=== PATIENT | male | born 1990 | race Caucasian/White ===

== ENCOUNTER 2022-11-15 05:39 | Inpatient (IN) | payer MEDICAID, SELFPAY ==
[2022-11-15] VITALS (107 sets, daily range): BP systolic 100–153; BP diastolic 49–110; PULSE 104–133; RESP 0–27; TEMP 36.6–38.3; O2SAT 95–100
--- NOTE | 2022-11-15 05:30 | DI.RAD_ITS ---
Exam(s) XR PORTABLE CHEST AP EXAM: XR PORTABLE CHEST AP CLINICAL HISTORY: left chest pain TECHNIQUE: 2D digital imaging was performed of the chest. One image was obtained. An AP view was ob tained. COMPARISON: No exams were available for comparison FINDINGS: MEDIASTINUM: Normal. HEART: Normal. PULMONARY VASCULATURE: Normal. LUNGS: Clear. PLEURAL SPACE: No pleural effusion or pneumothorax. BONE:Within normal limits for the patient's age. OTHER FINDINGS:Normal. IMPRESSION: No acute pulmonary findings. DATA REPOSITORY: RADIATION DOSE DELIVERED:
--- NOTE | 2022-11-15 05:45 | RT.EKG_ITS ---
APPROVED REPORT Exam: Resting ECG Reason for Exam: chest pain Patient Location: E HR:113 bpm ECG Measurements Heart Rate 113 AXIS DC 152 P 78 QRSd 117 QRS 118 QT 336 T 21 QTc 461 Conclusion Sinus tachycardia...rate> 99 Nonspecific intraventricular conduction delay...QRSd >115mS, not LBBB/RBBB Physician: notable t wave peaking
--- NOTE | 2022-11-15 05:52 | W.ED.GENAD ---
Discharge Plan Disposition Patient Disposition: Admit to [facility] Condition: Good Discharge Details Chief Complaint: Diabetes Clinical Impression: DKA (diabetic ketoacidosis), Acute hyperkalemia, Metabolic acidosis, Dehydration Primary Care Provider: Ani Franco ED Provider: Juan José Hurtado Home Meds and New Rx's Prescriptions: No Action insulin lispro [Humalog U-100 Insulin] 100 UNIT/ML cartridge 0 units IJ DIRECTED Medical Decision Making 32-year-old male with a past medical history of type 1 diabetes on an insulin pump presents today for concern for DKA. Patient states that he lives in [place], but is here visiting. He has insulin at home but his pump ran out of insulin yesterday. He is gone over 24 hours without any insulin. He has been vomiting as well. He admits to mild left-sided chest pain. He denies hematemesis or diarrhea. Patient states that this feels similar to previous DKA episodes. He recently had an episode of DKA few months ago at another hospital. He denies any other medical problems. He denies any other complaints at this time. He does state that he drank alcohol yesterday, but only had 1 beer. Physical exam demonstrates notably dry mucous membranes, tachycardia, mild tachypnea. Relatively nontender nondistended abdomen. No significant left-sided chest wall tenderness on palpation. Differential is highest for DKA, dehydration, but also pancreatitis and gastroenteritis as well. Will aggressively rehydrate, evaluate for electrolyte abnormality, manage DKA if clinically confirmed, closely reassess. 6:09 AM pH has returned, at 6.95. Bicarb is 6. Still waiting on the rest of labs. We have started an insulin infusion, however we will alter the [place] protocol and increase the insulin to 0.1 units/kg/h which we will start him at 7 units/h. We will continue to monitor closely. 6:45 AM There was a delay on the chemistries secondary to a laboratory issue, however we did call lab and they have informed us that the potassium just came back and it is 7. This corresponds to the peaked T waves noted on EKG. We will give calcium, albuterol, and continue to monitor closely. We are starting him on his third liter of normal saline at this time. He is still on the insulin drip. 8 AM Laboratory work-up for repeat electrolytes has returned, VBG still shows a pH at around 6.94, potassium has notably improved at 6.2, and glucose has dropped to 700 from the initial 800. We have transition the patient to lactated Ringer's at 250 cc/h right now. I discussed the case with the hospitalist , he agrees with the assessment and plan. Patient will be admitted to the ICU. I have extensively reviewed the treatment plan with the patient. I have addressed all patient concerns at this time. I have also discussed the plan with the admitting physician and they agree with the current assessment and plan and have agreed to assume responsibility for the patient. All parties demonstrate verbal understanding and agreement with our assessment and plan at this time. The documentation in this chart was dictated using [employer] dictation software. Please excuse any dictation errors. HPI General Date/Time Provider Initiated Documentation: 11/15/22 05:44. HPI Narrative: 32-year-old male with a past medical history of type 1 diabetes on an insulin pump presents today for concern for DKA. Patient states that he lives in [place], but is here visiting. He has insulin at home but his pump ran out of insulin yesterday. He is gone over 24 hours without any insulin. He has been vomiting as well. He admits to mild left-sided chest pain. He denies hematemesis or diarrhea. Patient states that this feels similar to previous DKA episodes. He recently had an episode of DKA few months ago at another hospital. He denies any other medical problems. He denies any other complaints at this time. He does state that he drank alcohol yesterday, but only had 1 beer. Related Data Home Medications Medication Instructions Recorded Confirmed insulin lispro 100 unit/mL 0 units IJ DIRECTED 11/06/15 11/06/15 subcutaneous cartridge (Humalog U-100 Insulin) Allergies Allergy/AdvReac Type Severity Reaction Status Date / Time No Known Allergies Allergy Unverified 11/15/22 05:47 General Stated Complaint: Diabetes ELISEO: 3 Review of Systems All systems reviewed & are unremarkable except as noted in HPI and below PFSH All Active Problems (Updated 11/15/22 @ 08:07 by Juan José Hurtado DO) DKA (diabetic ketoacidosis) (Acute) Acute hyperkalemia (Acute) Metabolic acidosis (Acute) Dehydration (Acute) Social History Smoking/Tobacco Use Status: Current every day Tobacco Type: cigarettes Smoking risk assessment performed?: Yes Drug use: Occasionally Exam Narrative Exam Narrative: 1.Const: Well-nourished, Well-developed, appearing stated age 2.Eyes: PERRL, no conjunctival injection, and symmetrical lids. 3.ENT: Atraumatic external nose and ears. Extremely dry MM. Neck: Symmetric, trachea midline, No thyromegaly. 4.CVS: +S1/S2, No murmurs or gallops. Peripheral pulses 2+ and equal in all extremities. Brisk capillary refill in all extremities. 5.RESP: Unlabored respiratory effort. Clear to auscultation bilaterally. No wheezes rales or rhonchi 6.GI: Soft, Nontender/Nondistended, No hepatosplenomegaly. No guarding or rebound. 7.MSK: Normocephalic/Atraumatic, Extremities w/o deformity or ttp No cyanosis or clubbing, Normal movement of all extremities 8.Skin: Warm, Dry. No rashes or lesions. 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 Sensation grossly intact, no focal neurologic deficits. 10.Psych: (AAO) x3. Appropriate mood and affect Course Vital Signs Vital signs: Vital Signs Temperature 36.6 C 11/15/22 05:39 Pulse 113 H 11/15/22 05:39 Respiratory Rate 16 11/15/22 05:39 Blood Pressure 122/52 L 11/15/22 05:39 Pulse Oximetry 99 11/15/22 05:39 Temperature 36.6 C 11/15/22 05:39 Pulse 113 H 11/15/22 05:39 Respiratory Rate 16 11/15/22 05:39 Respiratory Effort Normal 11/15/22 05:39 Blood Pressure 122/52 L 11/15/22 05:39 Pulse Oximetry 99 11/15/22 05:39 Oxygen Delivery Method Room Air 11/15/22 05:39 Oxygen Flow Rate 0 11/15/22 05:39 Pain Level 9 11/15/22 05:39 Critical Care Time Critical Care Time Critical Care Time: Yes Total Critical Care Time: 100 Attestation: Upon my evaluation, this patient had a high probability of imminent or life-threatening deterioration, which required my direct attention, intervention, and personal management. I have personally provided 100 minutes of critical care time exclusive of time spent on separately billable procedures. Time includes review of laboratory data, radiology results, discussion with consultants, and monitoring for potential decompensation. Interventions were performed as documented.
[2022-11-15] MEDS: Normal Saline 1,000 ML 1000 ML IV ×4 (05:56→07:00)
[2022-11-15] MEDS: INSULIN REGULAR IN 0.9 % NACL 100 UNIT/100 ML BAG IV ×2 (05:57→18:22)
[2022-11-15 05:59] LABS: BE (Venous) -26 mmol/L (-2-3); HCO3 (Venous) 6 mmol/L (23-28); O2 Sat (Venous) 81 %; TCO2 (Venous) 6 mmol/L (24-29); pCO2 (Venous) 27 mmHg (41-51); pO2 (Venous) 55 mmHg
[2022-11-15 06:02] LABS: pH (Venous) 6.95 (7.31-7.41)
[2022-11-15 06:03] LABS: Abs Immature Grans 0.44 10^3/uL (0.0-0.06); Absolute Basophil Count 0.11 10^3/uL (0.0-0.2); Absolute Eosinophil Count 0.09 10^3/uL (0.0-0.7); Absolute Monocyte Count 1.49 10^3/uL (0.1-0.8); Absolute Neutrophil Count 18.49 10^3/uL (1.2-6.7); Basophils % 0.5; Eosinophils % 0.4; HCT 49.5 % (40.0-50.0); HGB 15.4 g/dL (13.5-17.5); Lymphocytes % 7.2; MCH 31.8 pg (27.0-33.0); MCHC 31.1 % (32.0-36.0); MCV 102 fL (80-95); MPV 10.5 fL (8.0-11.0); Monocytes % 6.7; Neutrophils % 83.2; Platelet Count 336 10^3/uL (130-400); RBC 4.85 10^6/uL (4.36-5.78); RDW 12.8 % (11.8-14.1); RDW-SD 48.7 fL; WBC 22.22 10^3/uL (4.4-10.8)
[2022-11-15] MEDS: Ondansetron 4 MG/2 ML VIAL (06:09)
[2022-11-15 06:19] LABS: Lipase 25 U/L (16-77)
[2022-11-15 06:26] LABS: ETHANOL BLOOD < 3.0 mg/dL (<10)
[2022-11-15 06:39] LABS: ALT 32 U/L (16-63); AST 19 U/L (15-37); Albumin 4.4 g/dL (3.4-5.0); Alkaline Phosphatase 146 U/L (46-116); Anion Gap 32.9 mmol/L (3-11); BUN 59 mg/dL (7-18); Bilirubin, Total 0.6 mg/dL (0.2-1.0); CO2 7.1 mmol/L (21.0-32.0); CREATININE 2.7 mg/dL (0.70-1.30); Chloride 90 mmol/L (98-107); Estimated GFR 31.14 (mL/min/1.73m2); Magnesium 2.8 mg/dL (1.8-2.4); Sodium 130 mmol/L (136-145); Total Protein 8.3 g/dL (6.4-8.2); Troponin I < 50 ng/L (<or=60)
--- NOTE | 2022-11-15 06:45 | DI.VRAD_ITS ---
PROCEDURE INFORMATION: Exam: XR Chest Exam date and time: 11/15/2022 6:13 AM Age: 32 years old Clinical indication: Other: Left sided chest pain TECHNIQUE: Imaging protocol: Radiologic exam of the chest. Views: 1 view. COMPARISON: No relevant prior studies available. FINDINGS: Lungs: The lungs are clear and well aerated bilaterally. There is no consolidation, infiltrate, or pulmonary edema. The pulmonary vasculature is normal in caliber. Pleural spaces: Unremarkable. No pleural effusion or pneumothorax. Heart/Mediastinum: Heart size and cardiomediastinal contours are normal. Bones/joints: Unremarkable. IMPRESSION: Normal study. No active disease in the chest. Dictated and Authenticated by: Fely Dong MD. Ordering:RIVERA Can MD
[2022-11-15 06:56] LABS: Glucose 822 mg/dL (74-106)
[2022-11-15 06:59] LABS: BE (Venous) -27 mmol/L (-2-3); HCO3 (Venous) 5 mmol/L (23-28); O2 Sat (Venous) 88 %; TCO2 (Venous) 6 mmol/L (24-29); pCO2 (Venous) 25 mmHg (41-51); pO2 (Venous) 67 mmHg
[2022-11-15] MEDS: Albuterol 2.5 MG/3 ML INH SOLN VIAL 5 MG UPD (07:00)
[2022-11-15 07:01] LABS: pH (Venous) 6.94 (7.31-7.41)
[2022-11-15] MEDS: Calcium Gluconate 4.65 MEQ/10 ML VIAL 4.65 MG IVP (07:09)
[2022-11-15 07:19] LABS: Anion Gap 28.7 mmol/L (3-11); BUN 56 mg/dL (7-18); CO2 6.3 mmol/L (21.0-32.0); CREATININE 2.3 mg/dL (0.70-1.30); Calcium 8.2 mg/dL (8.5-10.1); Chloride 100 mmol/L (98-107); Estimated GFR 37.75 (mL/min/1.73m2); Sodium 135 mmol/L (136-145)
[2022-11-15] MEDS: Lactated Ringers 250 ML IV (07:24)
[2022-11-15 07:25] LABS: Glucose 710 mg/dL (74-106); Potassium 6.2 mmol/L (3.5-5.1)
[2022-11-15] MEDS: Normal Saline 50 ML (07:26)
--- NOTE | 2022-11-15 07:41 | NUR.NOTE ---
Nursing Note:Assumed care at 0700. Pt resting comfortably with stable VS. Medications infusing per MAR. Insulin drip adjusted per [place] protocol and reviewed with Dr. Hurtado. Bruno randle. Repeat VBG/BMP to be done 0830.
[2022-11-15 08:49] LABS: BE (Venous) -24 mmol/L (-2-3); HCO3 (Venous) 6 mmol/L (23-28); O2 Sat (Venous) 93 %; TCO2 (Venous) 6 mmol/L (24-29); pCO2 (Venous) 24 mmHg (41-51); pO2 (Venous) 72 mmHg
[2022-11-15 08:50] LABS: pH (Venous) 7.03 (7.31-7.41)
[2022-11-15 09:08] LABS: Anion Gap 27.8 mmol/L (3-11); BUN 52 mg/dL (7-18); CO2 6.2 mmol/L (21.0-32.0); CREATININE 2.1 mg/dL (0.70-1.30); Chloride 101 mmol/L (98-107); Potassium 5.3 mmol/L (3.5-5.1); Sodium 135 mmol/L (136-145)
[2022-11-15 09:10] LABS: Glucose 590 mg/dL (74-106)
--- NOTE | 2022-11-15 10:32 | HPE_ITS ---
Date of service: 11/15/22 Time of Service: 10:32 Assessment and Plan Assessment and plan (1) DKA (diabetic ketoacidosis): Status: Acute Assessment and plan: Mary protocol for DKA being followed. Lantus 20 units administered. Aggressive IV fluid resuscitation. Improving glucose and pH noted. No emesis since admission. PRN zofran. Monitor K closely. He has insulin available; no concerns regarding obtaining it. He has tried a CGM in the past but could not rely on it adhering well. (2) Acute hyperkalemia: Status: Acute Assessment and plan: Initialy administered calcium and given a nebulized albuterol treatment. With insulin and the above, the K improved to 5.3 Monitor while on insulin drip being aware of the likelyhood of requiring K supplementation eventually. (3) Discharge planning issues: Status: Acute Assessment and plan: When DKA resolved, home with PCP f/u. History of Present Illness History of Present Illness Chief Complaint: Emesis Narrative: This is a 32 yo male with a PMH of DM1 that uses an insulin pump. He presented to the ED endorsing that he feels like he is in DKA. He ran out of insulin for his pump the day prior to admission. He lives in [place] but was in [facility]. He has been in DKA before (appx 6 months ago) and he felt the same so he presented to the ED. No diarrhea. Mild left-sided chest pain. He endorsed drinking 1 beer the day prior to admission. In the ED he was found to be tachycardic, mildly tachypneic with dry mucous membranes. Initial glucose on blood draw was 822. pH of 6.95. Bicarb 6. Anion gap32.9. WBC count 22.22. K 7.0. Mg 2.8. He was aggressively hydrated with IV fluids and insulin drip initiated. Review of Systems All systems reviewed & are unremarkable except as noted in HPI and below PFSH All Active Problems (Updated 11/15/22 @ 10:52 by Attila Maciel MD) Discharge planning issues (Acute) DKA (diabetic ketoacidosis) (Acute) Acute hyperkalemia (Acute) Metabolic acidosis (Acute) Dehydration (Acute) Social History Smoking/Tobacco Use Status: Current every day Tobacco Type: cigarettes Smoking risk assessment performed?: Yes Drug use: Occasionally Meds Allergies and Home Medications Allergies Allergy/AdvReac Type Severity Reaction Status Date / Time No Known Allergies Allergy Unverified 11/15/22 05:47 Home Medications Medication Instructions Recorded Confirmed Type insulin lispro 100 unit/mL 0 units IJ DIRECTED 11/06/15 11/06/15 History subcutaneous cartridge (Humalog U-100 Insulin) Results Labs 11/15/22 05:50 11/15/22 08:40 Labs: Laboratory Results - last 24 hr 11/15/22 11/15/22 11/15/22 05:50 05:50 05:50 WBC 22.22 H RBC 4.85 Hgb 15.4 Hct 49.5 MCV 102 H MCH 31.8 MCHC 31.1 L RDW 12.8 Plt Count 336 MPV 10.5 Immature Gran % 2.0 Neutrophils % 83.2 Lymphocytes % 7.2 Monocytes % 6.7 Eosinophils % 0.4 Basophils % 0.5 Nucleated RBC % 0.0 Absolute Neutrophils 18.49 H Absolute Lymphocytes 1.60 Absolute Monocytes 1.49 H Absolute Eosinophils 0.09 Absolute Basophils 0.11 VBG pH VBG pCO2 VBG pO2 VBG HCO3 VBG Total CO2 VBG O2 Saturation VBG Base Excess Sodium 130 L Potassium 7.0 H* Chloride 90 L Carbon Dioxide 7.1 L Anion Gap 32.9 H BUN 59 H Creatinine 2.7 H Est GFR (CKD-EPI 2020) 31.14 Glucose 822 H* Calcium 10.0 Magnesium 2.8 H Total Bilirubin 0.6 AST 19 ALT 32 Alkaline Phosphatase 146 H Troponin I < 50 Total Protein 8.3 H Albumin 4.4 Lipase 25 Ethyl Alcohol 11/15/22 11/15/22 11/15/22 05:50 05:50 06:53 WBC RBC Hgb Hct MCV MCH MCHC RDW Plt Count MPV Immature Gran % Neutrophils % Lymphocytes % Monocytes % Eosinophils % Basophils % Nucleated RBC % Absolute Neutrophils Absolute Lymphocytes Absolute Monocytes Absolute Eosinophils Absolute Basophils VBG pH 6.95 L* VBG pCO2 27 L VBG pO2 55 VBG HCO3 6 L VBG Total CO2 6 L VBG O2 Saturation 81 VBG Base Excess -26 L Sodium 135 L Potassium 6.2 H* Chloride 100 Carbon Dioxide 6.3 L Anion Gap 28.7 H BUN 56 H Creatinine 2.3 H Est GFR (CKD-EPI 2020) 37.75 Glucose 710 H* Calcium 8.2 L Magnesium Total Bilirubin AST ALT Alkaline Phosphatase Troponin I Total Protein Albumin Lipase Ethyl Alcohol < 3.0 11/15/22 11/15/22 11/15/22 06:53 08:40 08:40 WBC RBC Hgb Hct MCV MCH MCHC RDW Plt Count MPV Immature Gran % Neutrophils % Lymphocytes % Monocytes % Eosinophils % Basophils % Nucleated RBC % Absolute Neutrophils Absolute Lymphocytes Absolute Monocytes Absolute Eosinophils Absolute Basophils VBG pH 6.94 L* 7.03 L* VBG pCO2 25 L 24 L VBG pO2 67 72 VBG HCO3 5 L 6 L VBG Total CO2 6 L 6 L VBG O2 Saturation 88 93 VBG Base Excess -27 L -24 L Sodium 135 L Potassium 5.3 H Chloride 101 Carbon Dioxide 6.2 L Anion Gap 27.8 H BUN 52 H Creatinine 2.1 H Est GFR (CKD-EPI 2020) 42.10 Glucose 590 H* Calcium 9.0 Magnesium Total Bilirubin AST ALT Alkaline Phosphatase Troponin I Total Protein Albumin Lipase Ethyl Alcohol Last Vital Signs Temp 37.1 C 11/15/22 09:41 Pulse 111 H 11/15/22 09:41 Resp 15 11/15/22 09:41 BP 136/66 11/15/22 09:41 Pulse Ox 100 11/15/22 09:41 PAWSS Have you Been Recently Intoxicated or Drunk Within the Last 30 days?: No Have you Ever Experienced Previous Episodes of Alcohol Withdrawal?: No Have you ever Experienced Withdrawal Seizures?: No Have you ever Experienced Delirium Tremens(DT)s?: No Have you ever undergone Alcohol Rehabilitation Treatment (i.e, inpt ot outpatient treatment programs)?: No Have you ever Experienced Blackouts?: No Have you ever Combined Alcohol with other Downers within the last 90 days?: No Have you ever Combined Alcohol with any other Substance of Abuse during the last 90 days?: No Positive Blood Alcohol level on Presentation? [PCS.BAL]: No Evidence of Increased Autonomic Activity (i.e. HR>120, tremor, sweating, agitation, nausea)?: No Result: 0 Time Spent Time spent with Patient: 40-54 minutes Time was spent: preparing to see the patient(eg.review tests), obtaining and/or reviewing separately [facility], ordering medications,tests, procedures, indepentently interpreting results and counseling the patient
[2022-11-15] MEDS: Normal Saline 1,000 ML 200 ML IV ×2 (11:15→16:24)
[2022-11-15] MEDS: Enoxaparin 40 MG/0.4 ML SYR SC (12:17)
[2022-11-15] MEDS: Mylanta Suspension 30 ML CUP PO (12:19)
[2022-11-15 14:15] LABS: Anion Gap 18.2 mmol/L (3-11); BUN 39 mg/dL (7-18); CO2 13.8 mmol/L (21.0-32.0); CREATININE 1.7 mg/dL (0.70-1.30); Calcium 8.9 mg/dL (8.5-10.1); Chloride 105 mmol/L (98-107); Estimated GFR 54.25 (mL/min/1.73m2); Glucose 372 mg/dL (74-106); Sodium 137 mmol/L (136-145)
--- NOTE | 2022-11-15 14:41 | INITIAL_ITS ---
Date of service: 11/15/22 Time of Service: 14:41 Care Management Initial Assmt Initial Assessment REASON FOR HOSPITALIZATION:: DKA PREVIOUS FUNCTIONAL STATUS/SOCIAL/FAMILY SUPPORTS:: Gumaro lives alone in [place]. He has a sister in [place] and reports his father is retired and traveling. Gumaro works for [employer] and is independent with his ADLs at baseline. CURRENT FUNCTIONAL STATUS:: Miguel Ángel is lying down when CM meets with him. He answers questions asked of him but mumbles and is difficult to understand. He reports he has been in [facility] for two days visiting a friend and his insulin pump ran out, so his friend drove him to the hospital. ADVANCE DIRECTIVES:: None on file. Has patient been provided with info about the portal/API?: No Did the patient sign up for the portal?: No CODE STATUS:: Full Code INSURANCE COVERAGE / FINANCIAL ISSUES:: Patient says he has Medicaid. CURRENT HOME/COMMUNITY SERVICES/EQUIPMENT:: None. PRIMARY CARE PHYSICIAN:: Unknown - patient [facility] but does not remember the PCP's name. POTENTIAL DISCHARGE NEEDS:: Follow up appointment with PCP and evaluation for further needs. PATIENT/FAMILY EDUCATION NEEDS:: Review of discharge instructions including medications, limitations and follow up plan of care; discuss Ask Me Three and self management. ANTICIPATED BARRIERS TO DISCHARGE:: None identified at this time. TRANSPORTATION:: Via private vehicle with friend. PLAN:: Gumaro will likely be discharged home with no services when medically cleared by provider. He will follow up with his PCP and plan of care as directed. He will be transported home by his friend via private vehicle when ready. CM will continue to follow. PFSH All Active Problems (Updated 11/15/22 @ 10:52 by Attila Maciel MD) Discharge planning issues (Acute) DKA (diabetic ketoacidosis) (Acute) Acute hyperkalemia (Acute) Metabolic acidosis (Acute) Dehydration (Acute) Social History Smoking/Tobacco Use Status: Current every day Tobacco Type: cigarettes Smoking risk assessment performed?: Yes Drug use: Occasionally
[2022-11-15 18:14] LABS: BE (Venous) -5 mmol/L (-2-3); HCO3 (Venous) 21 mmol/L (23-28); O2 Sat (Venous) 83 %; TCO2 (Venous) 19 mmol/L (24-29); pCO2 (Venous) 37 mmHg (41-51); pH (Venous) 7.35 (7.31-7.41); pO2 (Venous) 41 mmHg
[2022-11-15] MEDS: Acetaminophen 325 MG TAB PO (18:21)
[2022-11-15] MEDS: Normal Saline Flush 10 ML SYR IVP (18:21)
[2022-11-15] MEDS: Nicotine 14 MG/24 HR PATCH TD (18:23)
[2022-11-15 18:25] LABS: Anion Gap 8.9 mmol/L (3-11); BUN 31 mg/dL (7-18); CO2 22.1 mmol/L (21.0-32.0); CREATININE 1.4 mg/dL (0.70-1.30); Calcium 8.6 mg/dL (8.5-10.1); Chloride 106 mmol/L (98-107); Estimated GFR 68.49 (mL/min/1.73m2); Glucose 239 mg/dL (74-106); Potassium 4.1 mmol/L (3.5-5.1); Sodium 137 mmol/L (136-145)
[2022-11-15] MEDS: POTASSIUM CHLORIDE/D5-0.45NACL 1,000 ML 150 MEQ IV (19:01)
[2022-11-15 19:16] LABS: *AMPHETAMINES SCREEN URINE Negative (Negative); *BARBITURATES SCREEN URINE Negative (Negative); *BENZODIAZEPINES SCREEN URINE Negative (Negative); Cannabinoids THC Negative (Negative); Cocaine Screen,Urine Positive (Negative); METHADONE URINE SCREEN Negative (Negative)
[2022-11-15 19:19] LABS: Tricyclic Antidepressants Negative (Negative)
[2022-11-15 20:38] LABS: OPIATES URINE SCREEN Negative (Negative)
[2022-11-15 22:15] LABS: BUN 26 mg/dL (7-18); CREATININE 1.3 mg/dL (0.70-1.30); Calcium 8.2 mg/dL (8.5-10.1); Chloride 105 mmol/L (98-107); Estimated GFR 74.85 (mL/min/1.73m2); Glucose 299 mg/dL (74-106); Potassium 3.7 mmol/L (3.5-5.1); Sodium 136 mmol/L (136-145)
[2022-11-15] MEDS: Insulin Glargine 300 UNITS/3 ML PEN 20 UNITS SC (22:30)
[2022-11-16] VITALS (41 sets, daily range): BP systolic 128–152; BP diastolic 66–90; PULSE 80–107; RESP 13–23; TEMP 37.4–38.4; O2SAT 96–97
--- NOTE | 2022-11-16 | DI.CT_ITS ---
Exam(s) CT SINUS WO EXAM: CT SINUS WO CLINICAL HISTORY: headache, fever, facial pain. TECHNIQUE: Imaging Protocol: Axial computed tomography images with coronal and sagittal reformatted images were created and reviewed. No IV Contrast COMPARISON: No exams were available for comparison FINDINGS: MAXILLARY SINUSES: There is very mild circumferential mucosal thickening in left maxillary sinus, not associated with a fluid level. No periosteal thickening nor bone dehiscence. The opposite right maxillary sinus is cl ear. OSTIOMEATAL UNITS: Mild mucosal thickening at the ostium of the left ostiomeatal unit. Right ostiome atal unit is clear although with some mild narrowing at the level of the hiatus semilunaris. ETHMOIDAL AIR CELLS: Well aerated. No mucosal thickening nor fluid levels. SPHENOID SINUSES: Well aerated. No mucosal thickening nor fluid levels. FRONTAL SINUSES: Well aerated. No mucosal thickening nor fluid levels. NASAL SEPTUM AND TURBINATES:Nasal septum is mildly deviated towards the right side and there is lengt h the contact between the mucosa of the right inferior turbinate and right side of the nasal septum, this causing some nasal passage obstruction at this level. There is no evidence of cami bullosa. No evidence of prominent nasal septal spur. IMPRESSION: 1. Mild mucosal thickening left maxillary sinus, not associated with a fluid level. Right maxillary sinus is clear. Mild bilateral ostiomeatal unit findings as above. 2. Right-sided nasal passage findings as described above. RADIATION DOSE DELIVERED: 118.77mGy.cm Total DLP DATA REPOSITORY: All CT scans at this facility are submitted to the National Radiology Data Registry (NRDR) Dose Index Registry (DIR) with the [employer] (A[employer]). RADIATION OPTIMIZATION: All CT scans at this facility use at least one of these dose optimization te chniques: automated exposure control; mA and/or kV adjustment per patient size (includes targeted exa ms where dose is matched to clinical indication); or iterative reconstruction.
--- NOTE | 2022-11-16 | DI.CT_ITS ---
Exam(s) CT HEAD W EXAM: CT HEAD W CLINICAL HISTORY: headache, fever. TECHNIQUE: Imaging Protocol: Both noninfused and contrast infused CT scans of the brain were perform ed. IV Contrast Dose =75 cc Axial computed tomography images with coronal and sagittal reformatted images were created and review ed COMPARISON: CT CT SINUS WO from 11/16/2022 FINDINGS: There are no skull fractures nor fluid in the visualized paranasal sinuses. There is no evidence of intracranial hemorrhage, mass effect, or shift of midline structures. There are no extra-axial fluid collections. The ventricles are not enlarged or shifted and there is no blo od within the ventricular system nor within the basal cisterns.No significant enlargement pituitary g land. There are no ring enhancing lesions in the brain and there is no abnormal meningeal enhancement, foca l or diffuse. No obvious venous sinus thrombosis evident. No obvious aneurysms. IMPRESSION: No significant acute intracranial findings. No significant enhancing intracranial findings. RADIATION DOSE DELIVERED: 1,421.58mGy.cm Total DLP DATA REPOSITORY: All CT scans at this facility are submitted to the National Radiology Data Registry (NRDR) Dose Index Registry (DIR) with the [employer] (ACR). RADIATION OPTIMIZATION: All CT scans at this facility use at least one of these dose optimization te chniques: automated exposure control; mA and/or kV adjustment per patient size (includes targeted exa ms where dose is matched to clinical indication); or iterative reconstruction.
[2022-11-16] MEDS: POTASSIUM CHLORIDE/D5-0.45NACL 1,000 ML 150 MEQ IV ×2 (01:20→08:14)
[2022-11-16] MEDS: Normal Saline Flush 10 ML SYR IVP ×3 (02:38→22:18)
[2022-11-16 02:58] LABS: Anion Gap 7.3 mmol/L (3-11); BUN 19 mg/dL (7-18); CO2 24.7 mmol/L (21.0-32.0); Calcium 8.3 mg/dL (8.5-10.1); Chloride 106 mmol/L (98-107); Estimated GFR 102.55 (mL/min/1.73m2); Glucose 132 mg/dL (74-106); Potassium 3.5 mmol/L (3.5-5.1); Sodium 138 mmol/L (136-145)
[2022-11-16] MEDS: Acetaminophen 325 MG TAB PO ×2 (05:52→19:49)
--- NOTE | 2022-11-16 06:15 | W.EVENT ---
Date of service: 11/16/22 Time of Service: 06:15 Event Note: Called for fever. Chart reviewed, here with DKA, now resolved. Does report one day of sore throat. On exam temp 38.4. Small left anterior cervical node. Throat very slight pharyngeal erythema, no exudate. Lab (admission) white count 22, CXR negative, U/A negative A/P: Fever, possible viral pharyngitis. Will check Strep swab and obtain blood cultures. Time Spent with Patient Time spent in critical care(minutes): 10 Time Spent Included: Chart review and Time at immediate bedside
[2022-11-16 06:24] LABS: Abs Immature Grans 0.08 10^3/uL (0.0-0.06); Absolute Basophil Count 0.03 10^3/uL (0.0-0.2); Absolute Eosinophil Count 0.02 10^3/uL (0.0-0.7); Basophils % 0.2; Eosinophils % 0.1; HCT 36.6 % (40.0-50.0); Immature Grans % 0.5; Lymphocytes % 15.1; MCH 31.9 pg (27.0-33.0); MCHC 35.5 % (32.0-36.0); MCV 90 fL (80-95); MPV 10.2 fL (8.0-11.0); Monocytes % 9.8; Neutrophils % 74.3; Platelet Count 255 10^3/uL (130-400); RBC 4.07 10^6/uL (4.36-5.78); RDW 12.4 % (11.8-14.1); RDW-SD 41.7 fL; WBC 17.37 10^3/uL (4.4-10.8)
[2022-11-16 06:32] LABS: Absolute Lymphocyte Count 2.62 10^3/uL (1.2-3.4); Absolute Neutrophil Count 12.91 10^3/uL (1.2-6.7)
[2022-11-16 06:48] LABS: Anion Gap 8.7 mmol/L (3-11); BUN 16 mg/dL (7-18); CO2 24.3 mmol/L (21.0-32.0); Calcium 8.6 mg/dL (8.5-10.1); Chloride 105 mmol/L (98-107); Estimated GFR 102.55 (mL/min/1.73m2); Glucose 96 mg/dL (74-106); Potassium 3.4 mmol/L (3.5-5.1); Sodium 138 mmol/L (136-145)
[2022-11-16 07:26] LABS: Diff Comment Diff Reviewed; RBC Morphology Normal
--- NOTE | 2022-11-16 09:34 | W.PM.PROGNOT ---
Date of Service Date of service: 11/16/22 Time of Service: 09:34 Assessment and Plan Assessment and plan (1) DKA (diabetic ketoacidosis): Status: Acute Assessment and plan: AG had resolved, HCO3 now normal. K is a little low but he is getting some iv supplementation, I will give him additional po KCl. continue to monitor his BMP while we switch him to basal/bolus insulin including SSI at insulin resistant and CHO coverage Critical care time spent interviewing and examining the patient, reviewing studies, discussing case with patient's nurse and consulting physicians was 30 minutes (2) Dehydration: Status: Acute Assessment and plan: continue iv fluids for now until certain that he is tolerating his diet (3) Metabolic acidosis: Status: Acute Assessment and plan: resolved but monitor BMP as we switch to basal/bolus coverage (4) Acute febrile illness: Status: Acute Assessment and plan: unclear source but with headache, facial pressure and photophobia, will CT head and sinuses and consider LP. Blood cultures and throat cultures were obtained earlier this morning. We will check a prolactin and blood lactate levels. Subjective Subjective Interval history since last seen: Patient was admitted yesterday in acute DKA secondary to lack of insulin. He normally wears an insulin pump but left his insulin at home in [place] but was here in [place] partying with friends. We presented the hospital last night he had a leukocytosis 22,000 which is down to 17,000 however he is afebrile overnight and temperature 38.5 max now down to 38.1. Denies any cough sputum production dysuria. Did present with nausea and vomiting. Initial leukocytosis was attributed to his DKA however in light of his fever this is raise some concern of possible concomitant infection contributing to his DKA. 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 He does have a number of scabs over his arms and legs but no open sores or ulcers. Does have a headache and has photophobia. This does raise some concern for possible meningitis but he denies any neck pain. He does have a sore throat. Blood cultures and strep swab of his throat was obtained last night and are pending at this time. He denies being around any other ill contacts. Overnight patient's DKA has resolved. CO2 is up to 24.3 anion gap is down to 8.7. Patient is tolerating clear liquid diet we will advance his diet today and switch him over to basal bolus insulin since he does not have his insulin pump here. Exam Narrative Exam Narrative: Patient is to be ill, toxic appearing he is awake but is acting rather lethargic. He seems to be oriented to person place and circumstance. HEENT has some mild periorbital edema he has full extraocular motion intact no scleral icterus. Oropharynx noninjected no exudate. I could not elicit tenderness over his maxillary sinuses Neck is supple no adenopathy no cervical tenderness negative Brudzinski and Kernig's maneuver. Lungs are clear to auscultation Heart is regular rate and rhythm Abdomen soft nontender nondistended normal bowel sounds Extremities he has number scabs over his arms and legs but there is no open sores. Examination of his feet and toes shows no ulcerations of his toes or his feet. He has normal pedal pulses sensation is intact to light touch over both feet. Objective Last Vital Signs Temp 38.1 C H 11/16/22 08:25 Pulse 91 H 11/16/22 08:00 Resp 15 11/16/22 08:00 BP 146/90 H 11/16/22 08:00 Pulse Ox 97 11/16/22 07:15 Laboratory Results - last 24 hr 11/15/22 11/15/22 11/15/22 13:50 18:09 18:09 WBC RBC Hgb Hct MCV MCH MCHC RDW Plt Count MPV Immature Gran % Neutrophils % Lymphocytes % Monocytes % Eosinophils % Basophils % Nucleated RBC % Absolute Neutrophils Absolute Lymphocytes Absolute Monocytes Absolute Eosinophils Absolute Basophils RBC Morphology VBG pH 7.35 VBG pCO2 37 L VBG pO2 41 VBG HCO3 21 L VBG Total CO2 19 L VBG O2 Saturation 83 VBG Base Excess -5 L Sodium 137 137 Potassium 5.0 4.1 Chloride 105 106 Carbon Dioxide 13.8 L 22.1 Anion Gap 18.2 H 8.9 BUN 39 H 31 H Creatinine 1.7 H 1.4 H Est GFR (CKD-EPI 2020) 54.25 68.49 Glucose 372 H 239 H Calcium 8.9 8.6 Magnesium Urine Opiates Screen Urine Methadone Screen Ur Barbiturates Screen Ur Tricyclics Screen Ur Amphetamines Screen U Benzodiazepines Scrn Urine Cocaine Screen Ur THC Screen 11/15/22 11/15/22 11/16/22 18:35 21:59 02:40 WBC RBC Hgb Hct MCV MCH MCHC RDW Plt Count MPV Immature Gran % Neutrophils % Lymphocytes % Monocytes % Eosinophils % Basophils % Nucleated RBC % Absolute Neutrophils Absolute Lymphocytes Absolute Monocytes Absolute Eosinophils Absolute Basophils RBC Morphology VBG pH VBG pCO2 VBG pO2 VBG HCO3 VBG Total CO2 VBG O2 Saturation VBG Base Excess Sodium 136 138 Potassium 3.7 3.5 Chloride 105 106 Carbon Dioxide 22.0 24.7 Anion Gap 9.0 7.3 BUN 26 H 19 H Creatinine 1.3 1.0 Est GFR (CKD-EPI 2020) 74.85 102.55 Glucose 299 H 132 H Calcium 8.2 L 8.3 L Magnesium Urine Opiates Screen Negative Urine Methadone Screen Negative Ur Barbiturates Screen Negative Ur Tricyclics Screen Negative Ur Amphetamines Screen Negative U Benzodiazepines Scrn Negative Urine Cocaine Screen Positive A Ur THC Screen Negative 11/16/22 11/16/22 11/16/22 05:35 05:35 05:35 WBC 17.37 H RBC 4.07 L Hgb 13.0 L D Hct 36.6 L MCV 90 D MCH 31.9 MCHC 35.5 D RDW 12.4 Plt Count 255 MPV 10.2 Immature Gran % 0.5 Neutrophils % 74.3 Lymphocytes % 15.1 Monocytes % 9.8 Eosinophils % 0.1 Basophils % 0.2 Nucleated RBC % 0.0 Absolute Neutrophils 12.91 H Absolute Lymphocytes 2.62 Absolute Monocytes 1.70 H Absolute Eosinophils 0.02 Absolute Basophils 0.03 RBC Morphology Normal VBG pH VBG pCO2 VBG pO2 VBG HCO3 VBG Total CO2 VBG O2 Saturation VBG Base Excess Sodium 138 Potassium 3.4 L Chloride 105 Carbon Dioxide 24.3 Anion Gap 8.7 BUN 16 Creatinine 1.0 Est GFR (CKD-EPI 2020) 102.55 Glucose 96 Calcium 8.6 Magnesium 2.0 Urine Opiates Screen Urine Methadone Screen Ur Barbiturates Screen Ur Tricyclics Screen Ur Amphetamines Screen U Benzodiazepines Scrn Urine Cocaine Screen Ur THC Screen PAWSS Have you Been Recently Intoxicated or Drunk Within the Last 30 days?: No Have you Ever Experienced Previous Episodes of Alcohol Withdrawal?: No Have you ever Experienced Withdrawal Seizures?: No Have you ever Experienced Delirium Tremens(DT)s?: No Have you ever undergone Alcohol Rehabilitation Treatment (i.e, inpt ot outpatient treatment programs)?: No Have you ever Experienced Blackouts?: No Have you ever Combined Alcohol with other Downers within the last 90 days?: No Have you ever Combined Alcohol with any other Substance of Abuse during the last 90 days?: No Positive Blood Alcohol level on Presentation? [PCS.BAL]: No Evidence of Increased Autonomic Activity (i.e. HR>120, tremor, sweating, agitation, nausea)?: No Result: 0 Time Spent with Patient Time Spent with Patient: 25-34 minutes Time was spent: preparing to see the patient(eg.review tests), obtaining and/or reviewing separately otained hiistory, ordering medications,tests, procedures, referring, communicating with other health healthcare science specialist, indepentently interpreting results, counseling the patient and care coordination
[2022-11-16] MEDS: Insulin Glargine 300 UNITS/3 ML PEN 20 UNITS SC ×2 (10:07→22:17)
[2022-11-16 10:08] LABS: Lactate 0.9 mmol/L (0.6-1.4)
[2022-11-16 10:22] LABS: C-Reactive Protein 0.75 mg/dL (0.0-0.3)
[2022-11-16 10:23] LABS: Anion Gap 6.3 mmol/L (3-11); BUN 12 mg/dL (7-18); CO2 25.7 mmol/L (21.0-32.0); Calcium 8.6 mg/dL (8.5-10.1); Chloride 105 mmol/L (98-107); Estimated GFR 102.55 (mL/min/1.73m2); Glucose 166 mg/dL (74-106); Potassium 3.4 mmol/L (3.5-5.1); Sodium 137 mmol/L (136-145)
[2022-11-16] MEDS: Insulin Aspart 300 UNITS/3 ML PEN SC ×3 (10:39→22:16)
[2022-11-16 10:40] LABS: Procalcitonin 4.5 ng/mL
[2022-11-16 11:01] LABS: Bilirubin Negative (Negative); Blood Negative (Negative); Clarity Clear (Clear); Glucose 100 mg/dL (Negative); Ketones 15 mg/dL (Negative); Leukocyte Esterase Negative (Negative); Nitrite Negative (Negative); Specific Gravity 1.015 (1.005-1.025); Urobilinogen 0.2 mg/dL (Up to 0.2); pH 5.5 (5-8)
--- NOTE | 2022-11-16 11:02 | PGE_ITS ---
Date of Service Date of service: 11/16/22 Time of Service: 11:02 Subjective Subjective Interval history since last seen: Patient still requiring NE. Nursing tried to wean off but she required iv and po lopressor for her afib (rate went up to 140's). HR now back down 80's to 90's after repeat lopressor 5 mg IVP and oral lopressor 25 mg. She has gram negative coccobacilli in her blood stream, probably H. influenza. She is on both dox ycycline 100 mg IV q12h along w/ Rocephin 2 gm q24. She has pneumonia and is currently on 1 lpm. She has been using her IS and her acapella, but has not been able to produce any sputum for cultures. Objective Last Vital Signs Temp 38.1 C H 11/16/22 08:25 Pulse 91 H 11/16/22 08:00 Resp 15 11/16/22 08:00 BP 146/90 H 11/16/22 08:00 Pulse Ox 97 11/16/22 07:15 Laboratory Results - last 24 hr 11/15/22 11/15/22 11/15/22 13:50 18:09 18:09 WBC RBC Hgb Hct MCV MCH MCHC RDW Plt Count MPV Immature Gran % Neutrophils % Lymphocytes % Monocytes % Eosinophils % Basophils % Nucleated RBC % Absolute Neutrophils Absolute Lymphocytes Absolute Monocytes Absolute Eosinophils Absolute Basophils RBC Morphology VBG pH 7.35 VBG pCO2 37 L VBG pO2 41 VBG HCO3 21 L VBG Total CO2 19 L VBG O2 Saturation 83 VBG Base Excess -5 L VBG Lactate Sodium 137 137 Potassium 5.0 4.1 Chloride 105 106 Carbon Dioxide 13.8 L 22.1 Anion Gap 18.2 H 8.9 BUN 39 H 31 H Creatinine 1.7 H 1.4 H Est GFR (CKD-EPI 2020) 54.25 68.49 Glucose 372 H 239 H Calcium 8.9 8.6 Magnesium C-Reactive Protein Procalcitonin Urine Opiates Screen Urine Methadone Screen Ur Barbiturates Screen Ur Tricyclics Screen Ur Amphetamines Screen U Benzodiazepines Scrn Urine Cocaine Screen Ur THC Screen 11/15/22 11/15/22 11/16/22 18:35 21:59 02:40 WBC RBC Hgb Hct MCV MCH MCHC RDW Plt Count MPV Immature Gran % Neutrophils % Lymphocytes % Monocytes % Eosinophils % Basophils % Nucleated RBC % Absolute Neutrophils Absolute Lymphocytes Absolute Monocytes Absolute Eosinophils Absolute Basophils RBC Morphology VBG pH VBG pCO2 VBG pO2 VBG HCO3 VBG Total CO2 VBG O2 Saturation VBG Base Excess VBG Lactate Sodium 136 138 Potassium 3.7 3.5 Chloride 105 106 Carbon Dioxide 22.0 24.7 Anion Gap 9.0 7.3 BUN 26 H 19 H Creatinine 1.3 1.0 Est GFR (CKD-EPI 2020) 74.85 102.55 Glucose 299 H 132 H Calcium 8.2 L 8.3 L Magnesium C-Reactive Protein Procalcitonin Urine Opiates Screen Negative Urine Methadone Screen Negative Ur Barbiturates Screen Negative Ur Tricyclics Screen Negative Ur Amphetamines Screen Negative U Benzodiazepines Scrn Negative Urine Cocaine Screen Positive A Ur THC Screen Negative 11/16/22 11/16/22 11/16/22 05:35 05:35 05:35 WBC 17.37 H RBC 4.07 L Hgb 13.0 L D Hct 36.6 L MCV 90 D MCH 31.9 MCHC 35.5 D RDW 12.4 Plt Count 255 MPV 10.2 Immature Gran % 0.5 Neutrophils % 74.3 Lymphocytes % 15.1 Monocytes % 9.8 Eosinophils % 0.1 Basophils % 0.2 Nucleated RBC % 0.0 Absolute Neutrophils 12.91 H Absolute Lymphocytes 2.62 Absolute Monocytes 1.70 H Absolute Eosinophils 0.02 Absolute Basophils 0.03 RBC Morphology Normal VBG pH VBG pCO2 VBG pO2 VBG HCO3 VBG Total CO2 VBG O2 Saturation VBG Base Excess VBG Lactate Sodium 138 Potassium 3.4 L Chloride 105 Carbon Dioxide 24.3 Anion Gap 8.7 BUN 16 Creatinine 1.0 Est GFR (CKD-EPI 2020) 102.55 Glucose 96 Calcium 8.6 Magnesium 2.0 C-Reactive Protein Procalcitonin Urine Opiates Screen Urine Methadone Screen Ur Barbiturates Screen Ur Tricyclics Screen Ur Amphetamines Screen U Benzodiazepines Scrn Urine Cocaine Screen Ur THC Screen 11/16/22 11/16/22 11/16/22 10:00 10:00 10:00 WBC RBC Hgb Hct MCV MCH MCHC RDW Plt Count MPV Immature Gran % Neutrophils % Lymphocytes % Monocytes % Eosinophils % Basophils % Nucleated RBC % Absolute Neutrophils Absolute Lymphocytes Absolute Monocytes Absolute Eosinophils Absolute Basophils RBC Morphology VBG pH VBG pCO2 VBG pO2 VBG HCO3 VBG Total CO2 VBG O2 Saturation VBG Base Excess VBG Lactate Sodium 137 Potassium 3.4 L Chloride 105 Carbon Dioxide 25.7 Anion Gap 6.3 BUN 12 Creatinine 1.0 Est GFR (CKD-EPI 2020) 102.55 Glucose 166 H Calcium 8.6 Magnesium C-Reactive Protein 0.75 H Procalcitonin 4.5 Urine Opiates Screen Urine Methadone Screen Ur Barbiturates Screen Ur Tricyclics Screen Ur Amphetamines Screen U Benzodiazepines Scrn Urine Cocaine Screen Ur THC Screen 11/16/22 10:00 WBC RBC Hgb Hct MCV MCH MCHC RDW Plt Count MPV Immature Gran % Neutrophils % Lymphocytes % Monocytes % Eosinophils % Basophils % Nucleated RBC % Absolute Neutrophils Absolute Lymphocytes Absolute Monocytes Absolute Eosinophils Absolute Basophils RBC Morphology VBG pH VBG pCO2 VBG pO2 VBG HCO3 VBG Total CO2 VBG O2 Saturation VBG Base Excess VBG Lactate 0.9 Sodium Potassium Chloride Carbon Dioxide Anion Gap BUN Creatinine Est GFR (CKD-EPI 2020) Glucose Calcium Magnesium C-Reactive Protein Procalcitonin Urine Opiates Screen Urine Methadone Screen Ur Barbiturates Screen Ur Tricyclics Screen Ur Amphetamines Screen U Benzodiazepines Scrn Urine Cocaine Screen Ur THC Screen PAWSS Have you Been Recently Intoxicated or Drunk Within the Last 30 days?: No Have you Ever Experienced Previous Episodes of Alcohol Withdrawal?: No Have you ever Experienced Withdrawal Seizures?: No Have you ever Experienced Delirium Tremens(DT)s?: No Have you ever undergone Alcohol Rehabilitation Treatment (i.e, inpt ot outpatient treatment programs)?: No Have you ever Experienced Blackouts?: No Have you ever Combined Alcohol with other Downers within the last 90 days?: No Have you ever Combined Alcohol with any other Substance of Abuse during the last 90 days?: No Positive Blood Alcohol level on Presentation? [PCS.BAL]: No Evidence of Increased Autonomic Activity (i.e. HR>120, tremor, sweating, agitation, nausea)?: No Result: 0
[2022-11-16] MEDS: Normal Saline - Diluent 50 ML VIAL IJ (11:30)
[2022-11-16] MEDS: Omnipaque 350 MG/ML 500 ML BTL-Imaging package IJ (11:30)
--- NOTE | 2022-11-16 12:34 | DM INPTCON_ITS ---
Date of service: 11/16/22 Time of Service: 12:34 Diabetes Inpatient Consult Reason for Visit: Dm1 DESCRIPTION/ASSESSMENT: Received diabetes consult request. Will visit with Miguel Ángel once he gets out of ICU and feels better. Miguel Ángel has long hx of Dm1, uses an insulin pump and followed by [facility] End[facility]ology and sees a clinical educator regularly there. Miguel Ángel did not bring his insulin pump and ran out of insulin while visiting in [facility] over weekend. Admitted with DKA. Tolerating clears well, being worked up for possible infection that may have contributed to his DKA. Currently treated with basal bolus insulin. INTERVENTION: Advance diet as tolerated. PLAN: Will follow up tomorrow. Time Spent in Nutritional Counseling and Treatment: 0
[2022-11-16 12:45] LABS: COVID-19 PCR Negative (Negative); Influenza A PCR Negative (Negative); Influenza B PCR Negative (Negative); RSV PCR Negative (Negative)
--- NOTE | 2022-11-16 12:58 | W.ANESPROC ---
Procedure Note Date of procedure: 11/16/22 Pre-op diagnosis: Fever, photophobia, DKA Post-op diagnosis: same Consent signed by: Patient/ Cinthia Tom CRNA Position: lateral decubitus Prep: chlorhexidine Anesthesia: 2% Lidocaine Needle size: 20 ga Needle length: 3.5 Interspace: L3-4 Number of attempts: 2 Opening pressure: # cm H2O (10) Fluids mLs collected: 5 Fluid description: clear Complications: No Patient tolerance: Pt tolerated proceedure well Comments: No complications Procedure performed by: Rick Tom Condition: stable Disposition: ICU
[2022-11-16 13:02] LABS: Source Nasopharynx
[2022-11-16 13:35] LABS: Glucose (CSF) 91 mg/dL (40-70)
[2022-11-16 13:36] LABS: Total Protein (CSF) 66 mg/dL (15-45)
[2022-11-16] MEDS: cefTRIAXone 2 GM/50 ML BAG IVPB ×2 (13:37→23:16)
[2022-11-16] MEDS: Potassium Chloride 20 MEQ TABCR PO ×2 (13:37→19:49)
[2022-11-16] MEDS: POTASSIUM CHLORIDE/0.45% NACL 1,000 ML 100 MEQ IV ×2 (13:39→23:12)
[2022-11-16 13:56] LABS: Clarity Clear; Tube # 4; WBC 1 /uL (0-5); Xanthochromia Present
[2022-11-16 13:57] LABS: RBC 182 /mm3 (0-5)
[2022-11-16 13:58] LABS: RBC Tube#1 CSF 464 /mm3 (0-5)
[2022-11-16 14:44] LABS: Anion Gap 6.6 mmol/L (3-11); BUN 8 mg/dL (7-18); CO2 26.4 mmol/L (21.0-32.0); CREATININE 0.9 mg/dL (0.70-1.30); Calcium 8.5 mg/dL (8.5-10.1); Chloride 103 mmol/L (98-107); Estimated GFR 116.37 (mL/min/1.73m2); Glucose 185 mg/dL (74-106); Potassium 3.4 mmol/L (3.5-5.1); Sodium 136 mmol/L (136-145)
--- NOTE | 2022-11-16 15:47 | CMPROGNOTE_ITS ---
Date of service: 11/16/22 Time of Service: 15:47 Care Management Progress Note Progress Note Text Progress Note Text: S/O: Gumaro remains in the ICU at this time. Per MD, he is having increased symptoms such as fever, photophobia and elevated procalcitone; LP and blood cultures pending-started on ceftriaxone awaiting results. CM continues to follow. A: 32 year old male admitted to [facility] 11/15/22 for DKA P: Gumaro will return to his home in [place], he will transport via private vehicle with a friend, follow up with his PCP and plan of care as prescribed. CM to collect SS# for insurance verification; CM continues to follow.
--- NOTE | 2022-11-16 16:27 | PHA.REVIEW2 ---
Pharmacy Admission Review - Admission Clinical Review (Last Reviewed 11/15/22 @ 10:47 by Attila Maciel MD) Acute febrile illness (Acute) Discharge planning issues (Acute) DKA (diabetic ketoacidosis) (Acute) Acute hyperkalemia (Acute) Metabolic acidosis (Acute) Dehydration (Acute) No Known Allergies Allergy (Unverified 11/15/22 05:47) Resuscitation Status Full Code Height 5 ft 10 in Weight 69.5 kg - Renal Dosing Renal Dosing: BUN 8 mg/dL (7-18) 11/16/22 14:20 Creatinine 0.9 mg/dL (0.70-1.30) 11/16/22 14:20 Medications needing adjustments: Reviewed (Crcl ~115 mL/min current meds okay) - Anticoagulation Anticoagulation: Hgb 13.0 g/dL (13.5-17.5) L D 11/16/22 05:35 Hct 36.6 % (40.0-50.0) L 11/16/22 05:35 Plt Count 255 10^3/uL (130-400) 11/16/22 05:35 Creatinine 0.9 mg/dL (0.70-1.30) 11/16/22 14:20 DVT Prophylaxis: Reviewed Medications: Enoxaparin (put on hold due to LP) Therapeutic Anticoagulation: N/A - Opiate Usage Evaluate Pain Scale/Pains Meds: N/A - Relevant Labs Sodium 136 mmol/L (136-145) 11/16/22 14:20 Potassium 3.4 mmol/L (3.5-5.1) L 11/16/22 14:20 Chloride 103 mmol/L (98-107) 11/16/22 14:20 Magnesium 2.0 mg/dL (1.8-2.4) 11/16/22 05:35 C-Reactive Protein 0.75 mg/dL (0.0-0.3) H 11/16/22 10:00 Electrolytes, C-Reactive P, ESR: Reviewed (has PO K+ ordered and IVF w/K+) - DM Control DM Control: Glucose 185 mg/dL (74-106) H 11/16/22 14:20 Finger Stick Blood Glucose 112 Finger Stick Blood Glucose 112 Finger Stick Blood Glucose 112 Finger Stick Blood Glucose 112 Finger Stick Blood Glucose 149 Finger Stick Blood Glucose 149 Finger Stick Blood Glucose 149 Finger Stick Blood Glucose 139 Finger Stick Blood Glucose 139 Finger Stick Blood Glucose 139 DM Control: Reviewed (Changing patient from insulin drip to scheduled glargine, sliding scale aspart and carb coverage with aspart.) - Cardiac Review Cardiac Review: Troponin I < 50 ng/L (<or=60) 11/15/22 05:50 BP, HR, EF%: Reviewed (HR was elevated on admission but is currently within normal limits. BP has been up and down some.) - Qtc Review QTc: Reviewed (QTc 461 on admission) - IV to PO Switch IV Medications: Reviewed - Home Meds Home Med List reviewed: Reviewed (no confirmed home meds, external med history data not requested. Pt. uses insulin pump at home per H&P, has insulin coverage ordered.) - Current meds Current Medication Order Review: Intervened (Discontinued duplicate med order and DI meds that had already been given.) - Comments Comments/Follow Ups: Watch BP, BG, K+, labs, for culture results and for med changes. Antibiotic Review - Pharmacy Antibiotic Review Pharmacy Antibiotic Activity: C/S review Relevant Labs: Relevant Labs 11/16/22 11/16/22 10:00 10:00 C-Reactive Protein 0.75 H Procalcitonin 4.5 - Antibiotic Information Antibiotic Review Info: Blood and CSF cultures pending. Ceftriaxone ordered due to acute febrile illness.
[2022-11-17] VITALS (20 sets, daily range): BP systolic 132–156; BP diastolic 73–99; PULSE 75–106; RESP 11–29; TEMP 37.1–38.5; O2SAT 93–99
--- NOTE | 2022-11-17 | DI.RAD_ITS ---
Exam(s) XR CHEST 2V PA LATERAL EXAM: XR CHEST 2V PA LATERAL CLINICAL HISTORY: cough, fever. TECHNIQUE: 2D digital imaging was performed. COMPARISON: CR,XR XR PORTABLE CHEST AP from 11/15/2022 FINDINGS: 2 views: Heart size is normal. The mediastinum is not widened. Lungs are clear. No infiltrates nor pleural effusions. IMPRESSION: No acute pulmonary findings. DATA REPOSITORY: RADIATION DOSE DELIVERED:
[2022-11-17] MEDS: Acetaminophen 325 MG TAB PO (02:58)
[2022-11-17] MEDS: Normal Saline Flush 10 ML SYR IVP ×2 (06:10→09:27)
[2022-11-17 06:54] LABS: Abs Immature Grans 0.03 10^3/uL (0.0-0.06); Absolute Basophil Count 0.03 10^3/uL (0.0-0.2); Absolute Eosinophil Count 0.03 10^3/uL (0.0-0.7); Absolute Lymphocyte Count 2.51 10^3/uL (1.2-3.4); Absolute Monocyte Count 1.04 10^3/uL (0.1-0.8); Absolute Neutrophil Count 6.58 10^3/uL (1.2-6.7); Basophils % 0.3; Eosinophils % 0.3; HCT 40.8 % (40.0-50.0); HGB 14.3 g/dL (13.5-17.5); Immature Grans % 0.3; Lymphocytes % 24.6; MCH 32.1 pg (27.0-33.0); MCV 92 fL (80-95); MPV 10.2 fL (8.0-11.0); Monocytes % 10.2; Neutrophils % 64.3; Platelet Count 234 10^3/uL (130-400); RBC 4.46 10^6/uL (4.36-5.78); RDW 12.7 % (11.8-14.1); RDW-SD 42.8 fL; WBC 10.22 10^3/uL (4.4-10.8)
[2022-11-17 07:08] LABS: Anion Gap 6.4 mmol/L (3-11); BUN 8 mg/dL (7-18); CO2 30.6 mmol/L (21.0-32.0); CREATININE 0.7 mg/dL (0.70-1.30); Chloride 102 mmol/L (98-107); Estimated GFR 125.55 (mL/min/1.73m2); Glucose 155 mg/dL (74-106); Magnesium 1.8 mg/dL (1.8-2.4); Sodium 139 mmol/L (136-145)
[2022-11-17] MEDS: Potassium Chloride 20 MEQ TABCR PO (09:22)
[2022-11-17] MEDS: Insulin Aspart 300 UNITS/3 ML PEN SC ×7 (09:22→21:44)
[2022-11-17] MEDS: Enoxaparin 40 MG/0.4 ML SYR SC (12:14)
[2022-11-17] MEDS: cefTRIAXone 2 GM/50 ML BAG IVPB (12:15)
--- NOTE | 2022-11-17 12:35 | W.PM.PROGNOT ---
Date of Service Date of service: 11/17/22 Time of Service: 12:36 Assessment and Plan Assessment and plan (1) DKA (diabetic ketoacidosis): Status: Acute Assessment and plan: DKA remains resolved. anion gap normal. glucose running 180's to 220's. I have increased his Lantus and he is currently on insulin resistant sliding scale along w/ CHO coverage Professional time spent interviewing and examining patient, discussion of goals of care with hospital team (care management, nursing and consulting professionals) was 30 minutes. (2) Dehydration: Status: Resolved Assessment and plan: he is tolerating his diet quite well and I have advanced his diet. IV fluids were stopped. (3) Metabolic acidosis: Status: Resolved Assessment and plan: resolved now he is out of DKA (4) Acute febrile illness: Status: Acute Assessment and plan: unclear source, possible odontogenic vs sinusitis although his CT scan was not impressive. awaiting viral CSF studies but no bacterial growth after 24hr and gram stain was unremarkable. CSF protein was on high side. Glucose was also high but no surprising in setting of DKA. Will dc his ceftriaxone and put him on 5 day course of Augmentin for sinusitis/dental caries and have him follow up w/ dentist upon discharge. Subjective Subjective Interval history since last seen: Patient is feeling better. Minimal cough but no sputum production. He has some dental pain over bilateral lower molars, however he had had hx of prior fillings. He has post LP headache. 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 Patient still w/ low grade fevers. However his leukocytosis has resolved. He is on high dose Ceftriaxone but with negative CSF cultures. Viral studies still pending. Exam Narrative Exam Narrative: alert and oriented x 3, sitting up at bedside eating lunch. Appetite has improved. HEENT: no purulent discharge, teeth intact, no pus from the gums, no erythema Neck: supple, nontender, no meningismus Lungs: clear w/ prolonged expiratory phase Heart: RRR Extremities: no edema Objective Last Vital Signs Temp 38.0 C H 11/17/22 09:07 Pulse 98 H 11/17/22 11:00 Resp 23 11/17/22 11:01 BP 148/95 H 11/17/22 11:00 Pulse Ox 98 11/17/22 11:01 Laboratory Results - last 24 hr 11/16/22 11/16/22 11/16/22 11:50 12:35 12:35 WBC RBC Hgb Hct MCV MCH MCHC RDW Plt Count MPV Immature Gran % Neutrophils % Lymphocytes % Monocytes % Eosinophils % Basophils % Nucleated RBC % Absolute Neutrophils Absolute Lymphocytes Absolute Monocytes Absolute Eosinophils Absolute Basophils Xanthochromia Sodium Potassium Chloride Carbon Dioxide Anion Gap BUN Creatinine Est GFR (CKD-EPI 2020) Glucose Calcium Magnesium CSF Tube Number CSF Color CSF Clarity CSF WBC CSF RBC CSF RBC (1) CSF Diff Comment CSF Glucose 91 H CSF Total Protein CSF CMV Specimen Source CSF EBV Spec Source Cancelled CSF [place] RNA Cancelled Adenovirus Source Adenovirus (PCR) COVID-19 Source Nasopharynx SARS-CoV-2 (PCR) Negative CMV DNA Qual PCR EBV DNA (PCR) Cancelled Influenza Type A (PCR) Negative Influenza Type B (PCR) Negative RSV (PCR) Negative AFB Source AFB Culture Final Res Fungal Specimen Source Fungal Culture Status Fungal Culture Final Fungal Smear Result M. Tuberculosis PCR Path Cons Comment AFB Smear (Ref Lab) 11/16/22 11/16/22 11/16/22 12:35 12:35 12:35 WBC RBC Hgb Hct MCV MCH MCHC RDW Plt Count MPV Immature Gran % Neutrophils % Lymphocytes % Monocytes % Eosinophils % Basophils % Nucleated RBC % Absolute Neutrophils Absolute Lymphocytes Absolute Monocytes Absolute Eosinophils Absolute Basophils Xanthochromia Present Sodium Potassium Chloride Carbon Dioxide Anion Gap BUN Creatinine Est GFR (CKD-EPI 2020) Glucose Calcium Magnesium CSF Tube Number 4 CSF Color Colorless CSF Clarity Clear CSF WBC 1 CSF RBC 182 H CSF RBC (1) 464 H CSF Diff Comment CSF Glucose CSF Total Protein 66 H CSF CMV Specimen Source Cancelled CSF EBV Spec Source CSF [place] Nile RNA Adenovirus Source Cancelled Adenovirus (PCR) Cancelled COVID-19 Source SARS-CoV-2 (PCR) CMV DNA Qual PCR Cancelled EBV DNA (PCR) Influenza Type A (PCR) Influenza Type B (PCR) RSV (PCR) AFB Source Cancelled AFB Culture Final Res Cancelled Fungal Specimen Source Cancelled Fungal Culture Status Cancelled Fungal Culture Final Cancelled Fungal Smear Result Cancelled M. Tuberculosis PCR Cancelled Path Cons Comment SEE COMMENT AFB Smear (Ref Lab) Cancelled 11/16/22 11/17/22 11/17/22 14:20 06:10 06:10 WBC 10.22 RBC 4.46 Hgb 14.3 Hct 40.8 MCV 92 MCH 32.1 MCHC 35.0 RDW 12.7 Plt Count 234 MPV 10.2 Immature Gran % 0.3 Neutrophils % 64.3 Lymphocytes % 24.6 Monocytes % 10.2 Eosinophils % 0.3 Basophils % 0.3 Nucleated RBC % 0.0 Absolute Neutrophils 6.58 Absolute Lymphocytes 2.51 Absolute Monocytes 1.04 H Absolute Eosinophils 0.03 Absolute Basophils 0.03 Xanthochromia Sodium 136 139 Potassium 3.4 L 4.0 Chloride 103 102 Carbon Dioxide 26.4 30.6 Anion Gap 6.6 6.4 BUN 8 8 Creatinine 0.9 0.7 Est GFR (CKD-EPI 2020) 116.37 125.55 Glucose 185 H 155 H Calcium 8.5 9.0 Magnesium 1.8 CSF Tube Number CSF Color CSF Clarity CSF WBC CSF RBC CSF RBC (1) CSF Diff Comment CSF Glucose CSF Total Protein CSF CMV Specimen Source CSF EBV Spec Source CSF [place] RNA Adenovirus Source Adenovirus (PCR) COVID-19 Source SARS-CoV-2 (PCR) CMV DNA Qual PCR EBV DNA (PCR) Influenza Type A (PCR) Influenza Type B (PCR) RSV (PCR) AFB Source AFB Culture Final Res Fungal Specimen Source Fungal Culture Status Fungal Culture Final Fungal Smear Result M. Tuberculosis PCR Path Cons Comment AFB Smear (Ref Lab) PAWSS Have you Been Recently Intoxicated or Drunk Within the Last 30 days?: No Have you Ever Experienced Previous Episodes of Alcohol Withdrawal?: No Have you ever Experienced Withdrawal Seizures?: No Have you ever Experienced Delirium Tremens(DT)s?: No Have you ever undergone Alcohol Rehabilitation Treatment (i.e, inpt ot outpatient treatment programs)?: No Have you ever Experienced Blackouts?: No Have you ever Combined Alcohol with other Downers within the last 90 days?: No Have you ever Combined Alcohol with any other Substance of Abuse during the last 90 days?: No Positive Blood Alcohol level on Presentation? [PCS.BAL]: No Evidence of Increased Autonomic Activity (i.e. HR>120, tremor, sweating, agitation, nausea)?: No Result: 0 Time Spent with Patient Time Spent with Patient: 25-34 minutes Time was spent: preparing to see the patient(eg.review tests), referring, communicating with other health care manager, indepentently interpreting results, counseling the patient and care coordination
[2022-11-17 12:59] LABS: Lab Add On Test DONE
[2022-11-17] MEDS: Ibuprofen 800 MG TAB PO (13:32)
--- NOTE | 2022-11-17 14:47 | CMPROGNOTE_ITS ---
Date of service: 11/17/22 Time of Service: 14:47 Care Management Progress Note Progress Note Text Progress Note Text: S/O: Gumaro remains inpatient, refer to MD for detailed information. SS# sent to ACCESS, who confirmed Medicaid coverage and updated chart. CM continues to follow. A: 32 year old male admitted to [facility] 11/15/22 for DKA P: ?Gumaro will return to his home in [place], he will transport via private vehicle with a friend. Per MD, today Miguel Ángel started a 5 day course of Augmentin for sinusitis/dental caries and will require follow up w/dentist upon discharge. He will also follow up with his PCP and plan of care as prescribed. CM continues to follow.
[2022-11-17] MEDS: Amoxicillin 875/Clav. 125 TAB PO (19:16)
[2022-11-17] MEDS: Insulin Glargine 300 UNITS/3 ML PEN 25 UNITS SC (21:43)
[2022-11-18 06:29] VITALS: BP 148/98; PULSE 86; RESP 16; TEMP 37.2; O2SAT 98
[2022-11-18 06:49] LABS: HSV 1 DNA Result Negative (Negative); HSV 2 DNA Result Negative (Negative); Varicella Zoster DNA Result Negative ((See Note))
[2022-11-18] MEDS: Acetaminophen 325 MG TAB PO (07:36)
[2022-11-18] MEDS: Amoxicillin 875/Clav. 125 TAB PO (07:36)
[2022-11-18] MEDS: Insulin Aspart 300 UNITS/3 ML PEN SC ×4 (08:08→11:59)
[2022-11-18 09:01] VITALS: BP 154/96; PULSE 87; RESP 16; TEMP 36.6; O2SAT 96
[2022-11-18] MEDS: Ibuprofen 800 MG TAB PO (09:14)
[2022-11-18] MEDS: Normal Saline Flush 10 ML SYR IVP (09:14)
--- NOTE | 2022-11-18 10:09 | PDOC.CMPRO ---
Date of service: 11/18/22 Time of Service: 10:09 Care Management Progress Note Progress Note Text Progress Note Text: S/O: Gumaro A: 32 year old male admitted to [facility] 11/15/22 for DKA P: ?Gumaro will return to his home in [place], he will transport via private vehicle with a friend. Per MD, today Miguel Ángel started a 5 day course of Augmentin for sinusitis/dental caries and will require follow up w/dentist upon discharge. He will also follow up with his PCP and plan of care as prescribed. CM continues to follow.
[2022-11-18] MEDS: Enoxaparin 40 MG/0.4 ML SYR SC (11:58)
[2022-11-18 12:21] LABS: Abs Immature Grans 0.02 10^3/uL (0.0-0.06); Absolute Basophil Count 0.04 10^3/uL (0.0-0.2); Absolute Eosinophil Count 0.05 10^3/uL (0.0-0.7); Absolute Lymphocyte Count 2.83 10^3/uL (1.2-3.4); Absolute Monocyte Count 0.88 10^3/uL (0.1-0.8); Absolute Neutrophil Count 5.04 10^3/uL (1.2-6.7); Basophils % 0.5; Eosinophils % 0.6; HCT 45.1 % (40.0-50.0); HGB 15.8 g/dL (13.5-17.5); Immature Grans % 0.2; Lymphocytes % 31.9; MCH 32.1 pg (27.0-33.0); MCV 92 fL (80-95); MPV 9.6 fL (8.0-11.0); Monocytes % 9.9; Neutrophils % 56.9; Platelet Count 232 10^3/uL (130-400); RBC 4.92 10^6/uL (4.36-5.78); RDW 12.3 % (11.8-14.1); RDW-SD 41.8 fL; WBC 8.86 10^3/uL (4.4-10.8)
[2022-11-18 12:42] LABS: C-Reactive Protein 0.36 mg/dL (0.0-0.3)
--- NOTE | 2022-11-18 14:36 | W.PM.DS.N ---
Date of service: 11/18/22 Time of Service: 14:36 DS: Diagnosis Discharge Diagnosis (1) DKA (diabetic ketoacidosis): Status: Acute Asessment and Plan: 32-year-old male with type 1 diabetes mellitus on insulin pump who was visiting friends in [facility]. Patient lives in [facility] and ran out of his insulin did not bring a insulin with him at his visit to [place]. Over the weekend he developed nausea vomiting without hematemesis or diarrhea. On arrival he was found to be dehydrated and in acute DKA. See admission H&P and ER notes for details. On arrival he had a metabolic acidosis with pH 6.95 and a bicarbonate of 6 anion gap of 32.9 and a glucose of 822. Potassium was elevated at 7.0 and because he had peaked T waves on his EKG the emergency department provider gave him albuterol treatment and calcium gluconate to treat his hyperkalemia. He was bolused with insulin and started on insulin drip per usual protocol and given IV fluids. He did present with AMY with a BUN of 59 creatinine 2.7. He was admitted to the intensive care unit and treated with IV fluids antiemetics as well as insulin drip. His AMY resolved overnight by the next morning his BUN was down to 16 creatinine 1.0. He developed some hypokalemia which was corrected potassium came down to 3.4 and he was given supplemental potassium. On the day prior to discharge his BUN and creatinine electrolytes were all within normal limits. Patient was switched to basal bolus insulin with Lantus and NovoLog. Because he did not have any insulin here in [facility] he was given a NovoLog pen to take home with him to treat his blood sugars until he can get his own insulin refilled. (2) Dehydration: Status: Resolved Asessment and Plan: Acute dehydration secondary to DKA with presenting signs of acute kidney injury with prerenal azotemia that responded to IV fluid hydration. (3) Metabolic acidosis: Status: Resolved (4) Acute febrile illness: Status: Acute Asessment and Plan: Patient presented to the hospital afebrile at 36.6 but then later developed a fever of 38.0 later in the day of his admission. Temperatures varied for the first 48 hours with peaks as high as 38.4. Diagnostic work-up included chest x-ray on admission that showed no acute pulmonary findings repeat chest x-ray 2 days later again showed clear lung [place]. CT of the sinuses showed some mild mucosal thickening of the left maxillary sinus not associated with air-fluid level. Right maxillary sinus was clear but he has bilateral ostiomeatal mucosal thickening because the patient complained of headache and photophobia CT of his head was performed that showed no acute intracranial pathology and anesthesia department was consulted to perform an LP. Lumbar puncture was accomplished on 11/16/2022. Spinal fluid was clear colorless but it was a traumatic tap with elevation of his RBCs of 468 which then came down to 182/mm?. Glucose was elevated at 91 total protein was elevated at 66. Blood cultures which have been drawn on 11/16/2022 came back no growth. Spinal fluid culture showed no growth at 48 hours and Gram stain showed no white blood cells or bacteria. Patient was empirically treated with ceftriaxone 2 g IV every 12 initially but when bacterial meningitis was ruled out Rocephin was discontinued but he was put on Augmentin 875 mg twice a day for mild sinusitis as well as what appeared to be dental caries. Patient's fever subsided at the time of discharge she was afebrile. Patient had been afebrile for 24 hours before discharge. Of note patient never had an elevation of his white blood cell count on his peripheral blood smear. Nevertheless he did have a mildly elevated C-reactive protein of 0.75 which at discharge had declined down to 0.36 and he had a procalcitonin level that was at 4.5 on November 16, 2022 and came down to 2.0 on 11/17/2022. Patient was discharged home with a prescription for Augmentin 875 mg twice a day for 5 more days. Discharge Plan Disposition Patient Disposition: Home Condition: Good Discharge Details Reason For Visit: DKA Admit Date/Time: 11/15/22 07:44 Admit Provider: Attila Maciel Attending Provider: Attila Maciel Primary Care Provider: Ani Franco Home Meds and New Rx's Prescriptions: New amoxicillin-pot clavulanate 875-125 mg Tablet 1 tab PO BID 5 Days Qty: 10 0RF ibuprofen 800 mg Tablet 800 mg PO TID PRN PRN (Reason: headache) 5 Days Qty: 15 0RF insulin aspart U-100 100 unit/mL (3 mL) Insulin Pen See Rx Instructions .ROUTE .COMPLEX Qty: 15 0RF Rx Instructions: follow [facility] insulin resistant sliding scale and your Novolog pen until you get your insulin pump back Continued insulin lispro [Humalog U-100 Insulin] 100 UNIT/ML cartridge 0 units IJ DIRECTED Discharge Instructions Instructions: Diabetic Ketoacidosis (DC) Stand Alone Forms: Nursing Discharge Form Referrals: Unknown,Unknown [STAFF PHYSICIAN] - (Patient is going to call his PCP and make his own Appointment , please call and make an appointment in the next 1-2 weeks ) Activity:: Activity as Tolerated Equipment/Supplies:: No Equipment Needed Diet:: Carb Counting Discharge Orders Discharge Orders: Discharge Order (Routine); Ordered 11/18/22 Ordered By: Macho Campbell Discharge Data Discharge Date/Time-TO BE ENTERED AT DEPARTURE: 11/18/22 15:05 DS: Summary Time Spent with Patient providing and/or coordinating discharge services: Less than 30 minutes Specific discharge activities: Interview/exam of patient; review of discharge instructions, completion of prescriptions/discharge instructions; discussion w/ nursing and CM; documentation of hospital visit Status at Discharge Functional status at discharge: independent ambulation Overall status at discharge: patient is back to baseline Mental Status: mental status grossly normal Speech and Movement: speech and movement normal Mood: congruent mood Affect: normal affect Exam Narrative Exam Narrative: alert and oriented x 3, sitting up at bedside eating lunch. Appetite has improved. HEENT: no purulent discharge, teeth intact, no pus from the gums, no erythema, patient has couple of filling in his lower molars Neck: supple, nontender, no meningismus Lungs: clear w/ prolonged expiratory phase Heart: RRR Extremities: no edema Psych Mental Status: mental status grossly normal Speech and Movement: speech and movement normal Mood: congruent mood Affect: normal affect DS: Data Vitals/I&O Vitals and I&O: Vital Signs Temperature 36.6 C 11/18/22 09:01 Temperature Source Tympanic 11/18/22 09:01 Pulse 87 11/18/22 09:01 Pulse Rhythm Regular 11/18/22 08:00 Pulse 106 H 11/17/22 11:01 Respiratory Rate 16 11/18/22 09:01 Respiratory Effort Normal, Non-Labored 11/18/22 08:00 Respiratory Depth Normal 11/18/22 08:00 Respiratory Pattern Normal 11/18/22 08:00 Blood Pressure 154/96 H 11/18/22 09:01 Blood Pressure Mean 96 11/17/22 14:59 Blood Pressure Position Supine 11/17/22 09:00 Pulse Oximetry 96 11/18/22 09:01 Oxygen Delivery Method Room Air 11/18/22 09:01 Oxygen Flow Rate 0 11/18/22 09:01 Pain Level 5 11/18/22 06:29 Intake & Output 11/17/22 11/18/22 11/18/22 23:59 11:59 23:59 Intake Total 840 / 3370 240 / 240 Output Total 2800 / 4250 0 / 0 Balance -1960 / -880 0 / 240 240 / 240 Weight 66.7 kg Intake: IV 50 / 1100 Oral 790 / 2270 240 / 240 Output: Urine 2800 / 4250 0 / 0 Other: Urine Color Straw Light Jamila Urine Appearance Clear Clear Urine Odor None Comment pT stated they have not voided Data Completed and Pending Labs on day of discharge: Labs from last 24 hours 11/18/22 11/18/22 11/16/22 12:10 12:10 12:35 WBC 8.86 RBC 4.92 Hgb 15.8 Hct 45.1 MCV 92 MCH 32.1 MCHC 35.0 RDW 12.3 Plt Count 232 MPV 9.6 Immature Gran % 0.2 Neutrophils % 56.9 Lymphocytes % 31.9 Monocytes % 9.9 Eosinophils % 0.6 Basophils % 0.5 Nucleated RBC % 0.0 Absolute Neutrophils 5.04 Absolute Lymphocytes 2.83 Absolute Monocytes 0.88 H Absolute Eosinophils 0.05 Absolute Basophils 0.04 C-Reactive Protein 0.36 H HSV Source Description Not Applicable HSV I DNA PCR Negative HSV II DNA PCR Negative VZV Specimen Descript Not Applicable VZV DNA (PCR) Negative Preliminary micro results at discharge 11/16/22 12:35 Body Fluid Culture - Preliminary Cerebrospinal Fluid 11/16/22 06:50 Blood Culture - Preliminary Blood NO GROWTH 48 HOURS 11/16/22 06:15 Blood Culture - Preliminary Blood NO GROWTH 48 HOURS PFSH All Active Problems Acute febrile illness (Acute) Discharge planning issues (Acute) DKA (diabetic ketoacidosis) (Acute) Acute hyperkalemia (Acute) Social History Smoking/Tobacco Use Status: Current every day Tobacco Type: cigarettes Smoking risk assessment performed?: Yes Drug use: Occasionally Time Spent with Patient Time Spent with Patient: <45 minutes Time was spent: preparing to see the patient(eg.review tests), ordering medications,tests, procedures, referring, communicating with other health medication care manager, indepentently interpreting results, counseling the patient and care coordination
--- NOTE | 2022-11-18 17:37 | PDOC.CMDIS ---
LACE Index Scoring Tool Questions: Length of Stay (in days): 3 Was the patient admitted via the E.D.?: Yes Comorbidities: Diabetes w/o Complication E.D. Visits: 1 Answers: Total Score: 8 Risk of Readmission: Low Risk Care Management Discharge Plan Reason for Hospitalization: DKA Discharge Plan: Miguel Ángel will be discharged with no new services. he will follow up with his PCP and plan of care and transport with a friend. Patient/Family Education Needs: Review discharge instructions, limitations, follow up plan, discuss Ask Me Three
== END 2022-11-18 15:05 | disposition home or self-care (01) | DRG 639 ==
LOC: ER 08:07 → ICU 09:28 → MS 11-17 16:09
PROVIDERS: Internal Medicine; Admitting Provider Family Medicine; Emergency Provider Student in an Organized Health Care Education/Training Program; PCP Internal Medicine Endocrinology, Diabetes & Metabolism; Visit Provider Family Medicine
DX: E10.10 Type 1 diabetes mellitus with ketoacidosis without coma (principal); E87.5 Hyperkalemia; E86.0 Dehydration; R50.9 Fever, unspecified; Z96.41 Presence of insulin pump (external) (internal); R07.89 Other chest pain; K08.89 Other specified disorders of teeth and supporting structures; G97.1 Other reaction to spinal and lumbar puncture; Y84.4 Aspiration of fluid as the cause of abnormal reaction of the patient, or of later complication, without mention of misadventure at the time of the procedure; E87.6 Hypokalemia; K02.9 Dental caries, unspecified; J32.0 Chronic maxillary sinusitis
CPT/HCPCS: 62270; 36410; 36415; 80048; 80053; 80307; 82805; 82945; 83690; 84145; 87040; 87102; 87116; 87206; 87529; 87637; 87798; 87799; 89050; 89051; 93005; J1650; 70460; 70486; 71045; 71046; 80320; 81003; 83605; 83735; 84157; 84484; 85025; 86140; 87070; 87205; 87496; 93010; 99223; 99232; 99238; 99291; J0612; J2405; J3490; J7613

== ENCOUNTER 2023-02-14 22:32 | Emergency (ER) | payer MEDICAID, SELFPAY ==
[2023-02-14] VITALS (7 sets, daily range): BP systolic 123–143; BP diastolic 74–97; PULSE 73–93; RESP 14–18; TEMP 36.6; O2SAT 95–97
--- NOTE | 2023-02-14 22:45 | RT.EKG_ITS ---
APPROVED REPORT Exam: Resting ECG Reason for Exam: chest pain Patient Location: E HR:77 bpm ECG Measurements Heart Rate 77 AXIS CA 147 P 47 QRSd 94 QRS 94 QT 399 T 16 QTc 452 Conclusion Sinus rhythm...normal P axis, V-rate 60- 99 Narrow complex normal sinus rhythm at a rate of 77. Normal axis. Intervals within normal limits. T wave flattening inferiorly in leads III and aVF. No ST segment abnormalities. No acute injury paulino kiah. Compared to prior dated November 2022 normal sinus rhythm has replaced sinus tachycardia.
--- NOTE | 2023-02-14 22:53 | ED.GENADUL_ITS ---
Discharge Plan Discharge Details Chief Complaint: GenMedical Primary Care Provider: Yanet Dixon ED Provider: Jw Pina Home Meds and New Rx's Prescriptions: No Action insulin lispro [Humalog U-100 Insulin] 100 UNIT/ML cartridge 0 units IJ DIRECTED insulin aspart U-100 100 unit/mL (3 mL) Insulin Pen See Rx Instructions .ROUTE .COMPLEX Qty: 15 0RF Rx Instructions: follow [facility] insulin resistant sliding scale and your Novolog pen until you get your insulin pump back Medical Decision Making Patient presenting to the emergency department for chief complaint of diabetes medication issues. Patient reports that he is a type I diabetic and on an insulin pump but will run out of his insulin tomorrow. Patient states also that he is trying to get into treatment for cocaine abuse but last used 2 days ago. He does state some intermittent chest pain which he feels may be acid reflux but is unsure. Patient also complains of some intermittent vomiting. He states that his blood sugars typically run 250 on average but has not been checking them recently due to not having a glucometer. Physical exam shows an overall well-appearing patient with no acute distress, at this time denies any pain or discomfort but states that he was not feeling well prior to arrival and had episode of vomiting which now he feels better. Normal cardiac and respiratory exam, normal abdominal exam no focal findings noted. Given patient's history fingerstick glucose was checked and patient was 372. While patient did not report this to me patient did state to nursing staff that he was homeless. Given elevated blood sugar, along with some vomiting we will plan on checking patient's labs. We will add on EKG and single troponin given that patient has been using cocaine but at this time patient presentation does not seem consistent with acute ACS. Pending results will give patient 1 L IV fluids. Please see physician interpretation for full interpretation of EKG but patient is in sinus rhythm narrow complex QRS and has no findings to suggest acute STEMI. HPI General Mode of arrival: ambulatory . Date/Time Provider Initiated Documentation: 02/14/23 22:33 . Limitations to Documentation: no limitations . Information obtained by: patient and RN notes reviewed . History of Present Illness 32 year old M presents to the emergency department with the chief complaint of Insulin issues, vomiting, chest pain, Patient started experiencing this day(s) (2) and it has been intermittent. No relieving factors improve symptom(s), No exacerbating factors reported . Patient notes no other symptoms.. Patient did receive the following treatments prior to arrival, none Related Data Home Medications Medication Instructions Recorded Confirmed insulin lispro 100 unit/mL 0 units IJ DIRECTED 11/06/15 11/06/15 subcutaneous cartridge (Humalog U-100 Insulin) insulin aspart U-100 100 unit/mL See Rx Instructions .Route 11/18/22 (3 mL) subcutaneous pen .COMPLEX #15 mL Previous Rx's Medication Instructions Recorded insulin aspart U-100 100 unit/mL See Rx Instructions .Route 11/18/22 (3 mL) subcutaneous pen .COMPLEX #15 mL Allergies Allergy/AdvReac Type Severity Reaction Status Date / Time No Known Allergies Allergy Unverified 11/15/22 05:47 General Stated Complaint: GenMedical ELISEO: 3 Review of Systems Constitutional Constitutional: Denies chills, Denies fever(s) and Denies malaise Cardiovascular Cardiovascular: Reports chest pain, Denies syncope and Denies dyspnea Respiratory Respiratory: Denies cough and Denies dyspnea Gastrointestinal Gastrointestinal: Denies abdominal pain, Reports heartburn, Reports nausea and Reports vomiting Neurologic Neurologic: Denies syncope PFSH All Active Problems Type 1 diabetes (Acute) Social History Smoking/Tobacco Use Status: Current every day Tobacco Type: cigarettes Smoking risk assessment performed?: Yes Alcohol Intake: never Drug use: Occasionally Substance use type: crack/cocaine Exam Const General: cooperative Orientation: alert, awake and oriented x3 Resp Effort & Inspection: normal respiratory effort and able to speak in complete sentences Auscultation: clear to auscultation bilaterally Cardio Rate: regular rate Rhythm: regular rhythm Heart Sounds: S1 normal and S2 normal GI Palpation: soft, not firm, no guarding, no masses, no pulsatile masses, not rigid and nontender Auscultation: normal bowel sounds Back/Spine/Pelvis Back: no CVA tenderness Neuro General: patient alert, patient awake, patient oriented x3, gait normal and moves all extremities Course Vital Signs Vital signs: Vital Signs Temperature 36.6 C 02/14/23 22:35 Pulse 93 H 02/14/23 22:35 Respiratory Rate 18 02/14/23 22:35 Blood Pressure 143/97 H 02/14/23 22:35 Pulse Oximetry 97 02/14/23 22:35 Temperature 36.6 C 02/14/23 22:35 Temperature Source Temporal Artery Scan 02/14/23 22:35 Pulse 93 H 02/14/23 22:35 Respiratory Rate 18 02/14/23 22:35 Blood Pressure 143/97 H 02/14/23 22:35 Pulse Oximetry 97 02/14/23 22:35 Oxygen Delivery Method Room Air 02/14/23 22:35 Oxygen Flow Rate 0 02/14/23 22:35 Sign Out Sign Out Data: Sign Out Comment: Patient signed out pending review of labs and reassessment of blood sugar after 1 L fluids. Primary working diagnosis is homelessness complicating chronic medical condition of diabetes and need of insulin. Patient will also need appropriate information for contacting recovery collector for further discussion of rehab from cocaine. Last updated by Jw Pina NP at 02/14/23 23:16
[2023-02-14] MEDS: Normal Saline 1,000 ML 1000 ML IV (23:20)
[2023-02-14] MEDS: Mylanta Suspension 30 ML CUP PO (23:20)
[2023-02-14 23:26] LABS: BE (Venous) 7 mmol/L (-2-3); HCO3 (Venous) 31 mmol/L (23-28); O2 Sat (Venous) 88 %; TCO2 (Venous) 27 mmol/L (24-29); pCO2 (Venous) 45 mmHg (41-51); pH (Venous) 7.44 (7.31-7.41); pO2 (Venous) 50 mmHg
[2023-02-14 23:27] LABS: Abs Immature Grans 0.02 10^3/uL (0.0-0.06); Absolute Basophil Count 0.04 10^3/uL (0.0-0.2); Absolute Eosinophil Count 0.14 10^3/uL (0.0-0.7); Absolute Lymphocyte Count 4.07 10^3/uL (1.2-3.4); Absolute Monocyte Count 0.68 10^3/uL (0.1-0.8); Basophils % 0.5; Eosinophils % 1.6; HCT 39.3 % (40.0-50.0); HGB 14.1 g/dL (13.5-17.5); Immature Grans % 0.2; MCH 31.1 pg (27.0-33.0); MCHC 35.9 % (32.0-36.0); MCV 87 fL (80-95); MPV 10.3 fL (8.0-11.0); Monocytes % 7.7; Platelet Count 284 10^3/uL (130-400); RBC 4.53 10^6/uL (4.36-5.78); RDW 10.9 % (11.8-14.1); RDW-SD 34.9 fL; WBC 8.85 10^3/uL (4.4-10.8)
--- NOTE | 2023-02-14 23:33 | ED.PROG_ITS ---
Date of service: 02/14/23 Time of Service: 23:33 Medical Decision Making I received signout on this 32-year-old insulin dependent diabetic with epigastric and chest pain. His ECG is nonischemic. His venous pH is not consistent with DKA as she has no acidemia. He is not hypercarbic. His CBC lacks anemia thrombocytopenia and leukocytosis. Giving 1 L of fluid. He is normothermic and not tachycardic. He is undomiciled. Anticipate he will be appropriate for discharge. He was discharged earlier this year following a presentation with DKA for which he received the following insulin: ?insulin aspart U-100 100 unit/mL (3 mL) Insulin Pen ?? See Rx Instructions? .ROUTE .COMPLEX Qty: 15 0RF ?? Rx Instructions: ?? follow [facility] insulin resistant sliding scale and your Novolog pen until you get your insulin pump back 11:50 PM I met with the patient. He reported that he did not know his recent A1c. He reports having a primary care provider in [place]. He is due for an upgrade of his [employer] insulin pump. He has been written for insulin pens. He does not have insulin test strips so we will write him for this and a glucometer which she also does not have. 11:54 PM Negative troponin. Comprehensive metabolic panel with mild hyponatremia, mild hypokalemia. Normal bicarbonate. Normal creatinine. No anion gap. Not consistent with DKA. No AMY. Mild hyperglycemia. Mild alkaline phosphatase elevation improved compared to prior. No hypomagnesemia. Patient reports that last night he was able to stay in [place]. He reports that he does not have a vehicle. He is not sure where he will stay this evening. He denies any diabetic foot ulcers. He does not know what his A1c is. Patient tolerated a p.o. chicken sandwich and a diet chandana carlos. He reported that he did not need to charge his phone.He was given information on a disaster recovery manager. I gave him return indications including any nausea or vomiting any fevers any foot ulcers or any other concerns. I have also asked health community service specialist Halima to have the patient seen next week by his PCP. I have also asked health community service specialist Halima to have the patient seen within the week by his primary care provider. He received the phone number for the [facility]. He was also advised to call 211. Sign Out Sign Out Data: Sign Out Comment: Patient signed out pending review of labs and reassessment of blood sugar after 1 L fluids. Primary working diagnosis is homelessness complicating chronic medical condition of diabetes and need of insulin. Patient will also need appropriate information for contacting disaster recovery manager for further discussion of rehab from cocaine. Last updated by Jw Pina NP at 02/14/23 23:16 Discharge Plan Disposition Patient Disposition: Home Discharge Details Clinical Impression: Type 1 diabetes mellitus with hyperglycemia, Homelessness, Elevated alkaline phosphatase level Primary Care Provider: Yanet Dixon ED Provider: Jai Brady [place] Meds and New Rx's Prescriptions: New (DME) Accu-Chek Criselda Plus test strp Strip See Rx Instructions .Route Qty: 100 0RF Rx Instructions: As directed (DME) blood-glucose meter Misc See Rx Instructions .Route Qty: 1 0RF Rx Instructions: As directed Continued insulin lispro [Humalog U-100 Insulin] 100 UNIT/ML cartridge 0 units IJ DIRECTED insulin aspart U-100 100 unit/mL (3 mL) Insulin Pen See Rx Instructions .ROUTE .COMPLEX Qty: 15 0RF Rx Instructions: follow [facility] insulin resistant sliding scale and your Novolog pen until you get your insulin pump back Discharge Instructions Instructions: Insulin Pens (ED), Diabetic Hyperglycemia (ED) Additional Instructions: You were seen in the emergency department for your high blood sugar. Your blood work shows that you are not having a diabetic emergency. You received an insulin pen which you should use as directed with this sliding scale. A prescription has been sent to the pharmacy at the [facility] [place] for a glucometer and test strips. Please return to the emergency department if you develop nausea vomiting any difficulty urinating or any sores on your feet. If you are seeking a disaster recovery manager please call 211. You may also try calling [facility]: [phone]. Discharge Data Discharge Date/Time-TO BE ENTERED AT DEPARTURE: 02/15/23 00:27
[2023-02-14 23:46] LABS: ALT 23 U/L (16-63); AST 13 U/L (15-37); Albumin 3.7 g/dL (3.4-5.0); Alkaline Phosphatase 141 U/L (46-116); Anion Gap 6.2 mmol/L (3-11); BUN 12 mg/dL (7-18); Bilirubin, Total 0.4 mg/dL (0.2-1.0); CO2 30.8 mmol/L (21.0-32.0); CREATININE 0.9 mg/dL (0.70-1.30); Chloride 97 mmol/L (98-107); Estimated GFR 116.37 (mL/min/1.73m2); Glucose 347 mg/dL (74-106); Magnesium 1.8 mg/dL (1.8-2.4); Potassium 3.3 mmol/L (3.5-5.1); Sodium 134 mmol/L (136-145); Total Protein 7.3 g/dL (6.4-8.2); Troponin I < 50 ng/L (<or=60)
[2023-02-15] VITALS: PULSE 83; RESP 20; O2SAT 98
[2023-02-15 00:02] VITALS: BP 152/87; PULSE 80; PULSE 85; RESP 25; O2SAT 99
[2023-02-15 00:10] VITALS: PULSE 72; RESP 19; O2SAT 98
[2023-02-15 00:16] VITALS: BP 136/76; PULSE 70; PULSE 72; RESP 19; O2SAT 98
--- NOTE | 2023-02-15 01:17 | NUR.NOTE ---
Referral to Care Management to refer to patient pcp for f/u in a week for hyperglycemia.Nursing Note:
== END 2023-02-15 00:27 | disposition home or self-care (01) ==
PROVIDERS: Nurse Practitioner Family; Emergency Provider Emergency Medicine; PCP Internal Medicine Endocrinology, Diabetes & Metabolism
DX: E10.65 Type 1 diabetes mellitus with hyperglycemia (principal); R74.8 Abnormal levels of other serum enzymes; Z59.00 Homelessness unspecified
CPT/HCPCS: 36416; 80053; 82805; 82962; 93005; 96360; 99284; 83735; 84484; 85025; 93010